=== PATIENT | female | born 1995 | race Caucasian/White ===

== ENCOUNTER 2018-11-15 08:07 | Day surgery (SDC) | payer BC ==
[~2018-11-15 08:07] MED LIST: CEFAZOLIN 2 GM/50 ML (PMX) 50 ML IVPB; SOD CHLORIDE 0.9% 1,000 ML IV
[2018-11-15] MEDS ORDERED: IPRATROPIUM (NEB) 0.5 MG/2.5 ML AMP HHN (10:30)
[2018-11-15] MEDS ORDERED: ONDANSETRON 4 MG INJ IV (10:30)
[2018-11-15] MEDS ORDERED: LABETALOL HCL 20MG INJ IV (10:30)
[2018-11-15] MEDS ORDERED: hydrALAzine 20 MG INJ IV (10:30)
[2018-11-15] MEDS ORDERED: MEPERIDINE 25 MG INJ IV (10:30)
[2018-11-15] MEDS ORDERED: FENTAnyl 50 MCG/ML VIAL IV ×3 (10:30)
[2018-11-15] MEDS ORDERED: MIDAZOLAM 1 MG/ML 2 ML INJ IV (10:30)
[2018-11-15] MEDS ORDERED: TRIMETHOBENZAMIDE 100 MG/ML VIAL IM (10:30)
[2018-11-15] MEDS ORDERED: HYDROmorphONE 1 MG/5 ML IV SYRINGE IV ×3 (10:30)
[2018-11-15] MEDS ORDERED: DIPHENHYDRAMINE 50 MG INJ IV (10:30)
[2018-11-15] MEDS ORDERED: ALBUTEROL 0.083% (NEB) 2.5 MG/3 ML AMP HHN (10:30)
[2018-11-15] MEDS ORDERED: EPHEDrine 25 MG/5 ML SYG IV (10:30)
[2018-11-15] MEDS ORDERED: MIDAZOLAM 1 MG/ML 2 ML INJ (10:36)
[2018-11-15] MEDS ORDERED: FENTAnyl 50 MCG/ML VIAL (10:36)
[2018-11-15] MEDS ORDERED: PROPOFOL 20 ML (10:36)
[2018-11-15] MEDS ORDERED: BUPIVACAINE 0.5% (SDV) 30 ML INJ (10:49)
[2018-11-15] MEDS ORDERED: LIDOCAINE 2% (MDV) 20 ML INJ (10:49)
[2018-11-15] MEDS: LIDOCAINE 1% (MDV) 20 ML INJ INJ (11:15)
[2018-11-15] MEDS: BUPIVACAINE 0.5%/EPI (SDV) 30 ML INJ INJ (11:15)
[2018-11-15] MEDS ORDERED: ONDANSETRON 4 MG INJ (11:26)
== END 2018-11-15 12:40 | disposition home or self-care (01) ==
LOC: SDS 08:07
DX: Z30.46 Encounter for surveillance of implantable subdermal contraceptive (principal)
CPT/HCPCS: 11982; 73060; 88300